=== PATIENT | male | born 1995 | race Caucasian/White ===

== ENCOUNTER 2019-11-11 12:54 | Emergency (ER) | payer BC ==
[~2019-11-11 12:54] MED LIST: Iopamidol-370 76% 500 ML 1 ML ONE
--- NOTE | 2019-11-11 15:08 | CT ---
CT arteriogram neck with IV contrast and 3-D imaging HISTORY: Cervical spine fracture. Extension into the right C5 neural foramen. FINDINGS: Correlated with recent CT cervical spine from earlier on the same date. There is normal branching of the great vessels at the aortic arch with good contrast flow into each c arotid and vertebral system. Good contrast flow is seen throughout the length of the left and right vertebral arteries. No evidenc e of dissection or occlusion. No significant atherosclerosis. No significant stenosis. Burst fracture of C7 is stable compared to the prior study. Retropulsion is unchanged in appearance w ith 0.9 cm AP diameter of the central canal at the level of greatest retropulsion. Comminuted fracture involving the right C5 pedicle, extending into the transverse foramen, is stable. Fracture involving the right C4 facet with perching of the right C4 us facet upon C5 is stable in bravo earance. Now better demonstrated on the axial and sagittal images is a nondisplaced comminuted fracture involv ing the upper sternal body. IMPRESSION: No evidence of vertebral artery dissection or other acute vascular abnormality. Comminuted nondisplaced upper sternal body fracture now better visualized. Cervical spine fractures as C4, C5, and C7 are stable.
[2019-11-11] MEDS ORDERED: Ketorolac Tromethamine 30 MG/ML VIAL ONE (15:42)
== END 2019-11-11 16:35 | disposition home or self-care (01) ==
LOC: ERS 12:54
DX: S12.400A Unspecified displaced fracture of fifth cervical vertebra, initial encounter for closed fracture (principal); S12.300A Unspecified displaced fracture of fourth cervical vertebra, initial encounter for closed fracture; S12.600A Unspecified displaced fracture of seventh cervical vertebra, initial encounter for closed fracture; F17.210 Nicotine dependence, cigarettes, uncomplicated; V43.52XA Car driver injured in collision with other type car in traffic accident, initial encounter
CPT/HCPCS: 70498; 96372; J1885; Q9967

== ENCOUNTER 2019-12-07 09:19 | Outpatient (CLI) | payer BC ==
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
== END 2019-12-07 09:20 | disposition home or self-care (01) ==
LOC: BBPSCS 09:19 → TBSIIMAG 09:20
PROVIDERS: ATTEND Surgery
DX: S12.300A Unspecified displaced fracture of fourth cervical vertebra, initial encounter for closed fracture (principal); S12.400A Unspecified displaced fracture of fifth cervical vertebra, initial encounter for closed fracture; S12.600A Unspecified displaced fracture of seventh cervical vertebra, initial encounter for closed fracture; M43.12 Spondylolisthesis, cervical region
CPT/HCPCS: 72040

== ENCOUNTER 2020-01-12 09:31 | Outpatient (CLI) | payer BC ==
--- NOTE | 2020-01-12 11:00 | RAD ---
THREE VIEWS CERVICAL SPINE: COMPARISON: CT of the cervical spine 11/11/2019. HISTORY: Cervical spine fracture. FINDINGS: Three views of the cervical spine show compression deformity of the C7 vertebral body. This is stabl e compared to the prior CT. There is grade I retrolisthesis of C6 on C7. This is also stable compar ed to the prior exam. No prevertebral soft tissue swelling is seen. IMPRESSION: Stable compression fracture of C7. POS: [facility]
== END 2020-01-12 09:32 | disposition home or self-care (01) ==
LOC: BICRAD 09:31
PROVIDERS: ATTEND Surgery
DX: S12.600A Unspecified displaced fracture of seventh cervical vertebra, initial encounter for closed fracture (principal); M43.12 Spondylolisthesis, cervical region
CPT/HCPCS: 72040

== ENCOUNTER 2020-02-15 14:48 | Outpatient (CLI) | payer BC ==
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
== END 2020-02-15 14:49 | disposition home or self-care (01) ==
LOC: BICRAD 14:48
PROVIDERS: ATTEND Surgery
DX: S12.690G Other displaced fracture of seventh cervical vertebra, subsequent encounter for fracture with delayed healing (principal); M54.2 Cervicalgia; M43.12 Spondylolisthesis, cervical region
CPT/HCPCS: 72040